=== PATIENT | male | born 1950 | race American Indian/Alaskan Native ===

== ENCOUNTER 2019-04-06 06:50 | Day surgery (SDC) | payer SELFPAY ==
[~2019-04-06 06:50] MED LIST: SODIUM CHLORIDE FLUSH SYRINGE 10 ML IV NR
[2019-04-06] MEDS ORDERED: SUBLIMAZE IV NR (08:30)
[2019-04-06] MEDS ORDERED: VERSED IV NR (09:00)
[2019-04-06 09:08] LABS: Basophils % (Auto) 0.7 % (0.0-1.8); Eosinophils # (Auto) 0.1 K/mm3 (0.0-0.4); Eosinophils % (Auto) 2.7 % (0.0-4.3); Hematocrit 35.3 % (35.5-45.6); Hemoglobin 11.8 gm/dl (11.8-15.2); Lymphocytes # (Auto) 1.7 K/mm3 (1.2-5.4); Lymphocytes % (Auto) 33.8 % (13.4-35.0); Mean Corpuscular HGB Conc 33 % (32-34); Mean Corpuscular Volume 78 fl (84-94); Monocytes # (Auto) 0.4 K/mm3 (0.0-0.8); Platelet Count 225 K/mm3 (140-440); Red Blood Count 4.52 M/mm3 (3.65-5.03); Red Cell Distribution Width 18.5 % (13.2-15.2)
[2019-04-06 09:18] LABS: Calcium 8.9 mg/dL (8.4-10.2)
[2019-04-06 09:28] LABS: INR 1.01 (0.87-1.13); Partial Thromboplastin Time 28.6 Sec. (24.2-36.6)
--- NOTE | 2019-04-06 09:39 | Short Stay Summary ---
Short Stay Documentation Date of service: 04/06/19 - History Principal diagnosis: hypertension, chronic renal failure Past Medical History: ESRD, hypertension Social history: no significant social history, - Allergies and Medications Current Medications: Allergies Sulfa (Sulfonamide Antibiotics) Adverse Reaction (Unverified 04/22/15 14:43) Unknown Home Medications Medication Instructions Recorded Confirmed Last Taken Type Amlodipine Besylate [Norvasc] 10 mg PO DAILY 04/06/19 04/06/19 04/05/19 History 10mg Apixaban [Eliquis] 5 mg PO DAILY 04/06/19 04/06/19 04/04/19 History 5mg AtorvaSTATin [Lipitor] 20 mg PO DAILY 04/06/19 04/06/19 04/05/19 History 20mg Bimatoprost [Lumigan] 1 drops OU HS 04/06/19 04/06/19 04/05/19 History 1 Brimonidine/Timolol 0.2-0.5% 2 drops OU BID 04/06/19 04/06/19 04/05/19 History [Combigan 0.2-0.5%] 2 Ferrous Gluconate 324 MG 324 mg PO DAILY 04/06/19 04/06/19 04/05/19 History 324mg Irbesartan [Avapro] 300 mg PO DAILY 04/06/19 04/06/19 04/05/19 History 300mg Levothyroxine [Synthroid] 175 mcg PO DAILY 04/06/19 04/06/19 04/05/19 History 175mcg Active Medications Fentanyl (Sublimaze) 100 mcg IV ONCE NR Stop: 04/06/19 18:00 Midazolam HCl (Versed) 5 mg IV ONCE NR Stop: 04/06/19 23:59 Sodium Chloride (Sodium Chloride Flush Syringe 10 Ml) 10 ml IV PRN NR Stop: 04/06/19 17:59 - Physical exam General appearance: no acute distress, well-nourished Integumentary: no rash, no growths HEENT: Atraumatic Lungs: Normal air movement Breasts: deferred Gastrointestinal: normal Male Genitourinary: deferred Rectal Exam: deferred Extremities: Full ROM Neurological: Normal gait, Normal speech - Brief post op/procedure progress note Date of procedure: 04/06/19 Pre-op diagnosis: hypertension and ESRD Post-op diagnosis: same Procedure: CT guided left lower pole renal biopsy Anesthesia: local Surgeon: MERARI MARCUS Estimated blood loss: minimal Specimen disposition: to lab Condition: stable - Disposition Condition at discharge: Good Disposition: DC-01 TO HOME OR SELFCARE Short Stay Discharge Plan Activity: advance as tolerated Weight Bearing Status: Weight Bear as Tolerated Diet: regular Wound: keep clean and dry, per your surgeon's advice Follow up with: JOSE LUIS PRAKASH MD [Primary Care Provider] - 7 Days
[2019-04-06] MEDS ORDERED: GELFOAM 12 X 7 TP ONE ×2 (10:23→12:11)
--- NOTE | 2019-04-06 11:55 | Cat Scan Report ---
Exam: CT-guided renal biopsy Clinical indication: Patient with a history of hypertension and chronic renal failure Date: 04/06/2019 Procedure: Following and explanation of the risks, benefits and alternatives; written informed consent was obtained. The patient was brought to the angiographic suite and placed in prone position on the examination table. [employer] Engineer images of the abdomen and pelvis were obtained an appropriate access site chosen for the left kidney lower pole. The patient's left lower back was prepped and draped in the usual sterile fashion. 1% lidocaine was used for anesthesia. Using intermittant CT guidance, the left lower pole was cannulated with a 13 cm 19 gauge needle, a single 2.2 cm 20 gauge biopsy was then obtained. The tract was embolized with gelfoam. Post biopsy CT scan demonstrates a minimal cherise-nephric hematoma. The biopsy needle was removed and hemostasis was achieved using manual compression and a pressure dressing. The patient tolerated the procedure well, there were no immediate post procedure complications. Conscious sedation was preformed by radiologic nursing, continuous cardiopulmonary monitoring was preformed. Impression: CT guided renal biopsy of left lower pole
[2019-04-06 12:50] VITALS: BP 133/103
== END 2019-04-06 13:45 | disposition home or self-care (01) ==
LOC: CATHLABREC 06:50 → EDSTATUS 07:30 → CATHLABREC 13:45
PROVIDERS: ATTEND Internal Medicine Nephrology
DX: I12.0 Hypertensive chronic kidney disease with stage 5 chronic kidney disease or end stage renal disease (principal); N18.4 Chronic kidney disease, stage 4 (severe); R80.9 Proteinuria, unspecified; E78.00 Pure hypercholesterolemia, unspecified; E05.90 Thyrotoxicosis, unspecified without thyrotoxic crisis or storm; Z88.2 Allergy status to sulfonamides; Z79.899 Other long term (current) drug therapy; Z98.49 Cataract extraction status, unspecified eye; Z98.890 Other specified postprocedural states
CPT/HCPCS: 36415; 50200; 77012; 80048; 85025; 85610; 85730; A4649; J2250; J3010